=== PATIENT | female | born 1980 | race Caucasian/White ===

== ENCOUNTER 2022-04-13 15:00 | Outpatient (CLI) | payer MEDICAID, OTHER ==
--- NOTE | 2022-04-13 16:59 | XRAY Report ---
PROCEDURE: Chest 2 View X-Ray INDICATIONS: COUGH TECHNIQUE: 2 views of the chest were acquired. COMPARISON: None FINDINGS: Surgical changes and devices: None. Lungs and pleura: No pleural effusions or pneumothorax. Lungs are clear. Mediastinum: Mediastinal contours are normal. Heart size is normal. Bones and chest wall: No suspicious bony abnormalities. Soft tissues appear unremarkable. IMPRESSION: No acute cardiopulmonary abnormality Reviewed by: Timothy Hutchins on 04/13/2022 4:58 PM PST Approved by: Timothy Hutchins on 04/13/2022 4:58 PM [facility] Station ID: [id number]
== END 2022-04-13 23:59 | disposition home or self-care (01) ==
LOC: DI.N 15:00
PROVIDERS: ATTEND Registered Nurse
DX: R05.9 Cough, unspecified (principal)

== ENCOUNTER 2023-03-21 17:21 | Emergency (ER) | payer BC, MEDICAID, OTHER ==
[2023-03-21] MEDS ORDERED: SODIUM CHLORIDE 0.9% 1,000 ML IV STA (18:17)
[2023-03-21 18:20] LABS: BASOPHILS # (AUTO) 0.1 10^3/uL (0.0-0.1); BASOPHILS % (AUTO) 0.5 %; EOSINOPHILS # (AUTO) 0.2 10^3/uL (0.0-0.7); EOSINOPHILS % (AUTO) 2.4 %; HCT - HEMATOCRIT 42.2 % (37.0-47.0); HGB - HEMOGLOBIN 13.7 g/dL (12.0-16.0); LYMPHOCYTES # (AUTO) 3.9 10^3/uL (1.5-3.5); LYMPHOCYTES % (AUTO) 40.5 %; MEAN CORPUSCULAR HEMOGLOBIN 27.5 pg (27.0-31.0); MEAN CORPUSCULAR HGB CONC 32.5 g/dL (32.0-36.0); MEAN CORPUSCULAR VOLUME 84.6 fL (81.0-99.0); MEAN PLATELET VOLUME 9.5 fL (7.9-10.8); MONOCYTES # (AUTO) 0.6 10^3/uL (0.0-1.0); NEUTROPHILS # (AUTO) 4.8 10^3/uL (1.5-6.6); NEUTROPHILS % (AUTO) 50.3 %; PLT - PLATELET COUNT 301 10^3/uL (130-450); RED BLOOD COUNT 4.99 10^6/uL (4.20-5.40); RED CELL DISTRIBUTION WIDTH 13.8 % (12.0-15.0); WHITE BLOOD COUNT 9.6 x10^3/uL (4.8-10.8)
--- NOTE | 2023-03-21 18:20 | ED Physician Documentation ---
History of Present Illness - Stated complaint Stated Complaint: HIGH BLOOD SUGAR - Chief complaint Chief Complaint: General - Additonal information Additional information: 42-year-old female presents emergency department for evaluation of blood sugars. Reports that she was diagnosed as a type II diabetic within the last year. Initial A1c was 14 but on recheck several months ago it was down to 10. Patient takes NovoLog 2 units on average with meals. She takes Lantus 20 units at night. She is also on Ozempic each week. Typically reports her blood sugars are in the 150s. She will typically go to a coffee stand and have a sugar-free drink. The usual glass polisher that serves her was not present today and patient believes that she may have gotten a full sugar drink. At home she has felt lightheaded and weak. Some nausea no vomiting. Denies abdominal pain. She checked her blood sugars and it was 570. She took 6 units of NovoLog prior to arrival and on presentation to the ER her sugar was 482. Patient denies fevers, cough, dysuria or any recent illness Review of Systems Constitutional: denies: Fever, Chills Ears: reports: Reviewed and negative Throat: reports: Reviewed and negative Cardiac: denies: Chest pain / pressure, Palpitations Respiratory: denies: Dyspnea, Cough GI: reports: Nausea. denies: Abdominal Pain, Vomiting : reports: Reviewed and negative Skin: reports: Reviewed and negative PD PAST MEDICAL HISTORY - Past Medical History Past Medical History: Yes Cardiovascular: None Respiratory: None Neuro: None Endocrine/Autoimmune: Type 2 diabetes GI: None VERIFICATION MANAGER: None : None HEENT: None Psych: None Musculoskeletal: None Derm: None - Past Surgical History Past Surgical History: No - Present Medications Home Medications: Ambulatory Orders Medication Instructions Recorded Confirmed Atorvastatin Calcium 40 mg PO BID 03/21/23 DULoxetine [Cymbalta] 30 mg PO DAILY 03/21/23 QUEtiapine [SEROquel] 50 mg PO DAILY 03/21/23 - Allergies Allergies/Adverse Reactions: Allergies Allergy/AdvReac Type Severity Reaction Status Date / Time Penicillins Allergy Anaphylaxis Verified 03/21/23 17:24 Sulfa (Sulfonamide Allergy Emesis Verified 03/21/23 17:24 Antibiotics) - Social History Does the pt smoke?: No Smoking Status: Never smoker Does the pt drink ETOH?: No Does the pt have substance abuse?: No - Immunizations Immunizations are current?: Yes - POLST Patient has POLST: No PD ED PE NORMAL - General General: Alert and oriented X 3, No acute distress, Well developed/nourished - HEENT HEENT: Atraumatic - Neck Neck: Supple, no meningeal sign - Cardiac Cardiac: RRR, No murmur - Respiratory Respiratory: No respiratory distress, Clear bilaterally - Abdomen Abdomen: Normal bowel sounds, Soft, Non tender - Back Back: No CVA TTP - Derm Derm: Normal color, Warm and dry, No rash - Extremities Extremities: No deformity - Neuro Neuro: Alert and oriented X 3 Eye Opening: Spontaneous Motor: Obeys Commands Verbal: Oriented GCS Score: 15 Results - Vitals Vitals: Vital Signs - 24 hr 03/21/23 03/21/23 03/21/23 17:24 18:24 18:38 Temperature 36.8 C Heart Rate 88 86 Respiratory 18 17 18 Rate Blood Pressure 200/100 H 130/81 H O2 Saturation 98 97 Oxygen O2 Source Room air - Labs Labs: Laboratory Tests 03/21/23 03/21/23 03/21/23 17:27 18:12 18:12 WBC 9.6 RBC 4.99 Hgb 13.7 Hct 42.2 MCV 84.6 MCH 27.5 MCHC 32.5 RDW 13.8 Plt Count 301 MPV 9.5 Neut # (Auto) 4.8 Lymph # (Auto) 3.9 H [place] # (Auto) 0.6 Eos # (Auto) 0.2 Baso # (Auto) 0.1 Absolute Nucleated RBC 0.00 Nucleated RBC % 0.0 VBG pH VBG pCO2 VBG pO2 VBG HCO3 VBG Total CO2 VBG O2 Saturation VBG Base Excess Sodium 130 L Potassium 4.2 Chloride 97 L Carbon Dioxide 26 Anion Gap 7.0 BUN 20 Creatinine 0.8 Estimated GFR (MDRD) 79 L Glucose 421 H POC Whole Bld Glucose 482 H Calcium 9.9 Total Bilirubin 0.3 AST 12 ALT 20 Alkaline Phosphatase 83 Total Protein 7.2 Albumin 4.3 Globulin 2.9 Albumin/Globulin Ratio 1.5 Lipase 44 Urine Color Urine Clarity Urine pH Ur Specific [place] Urine Protein Urine Glucose (UA) Urine Ketones Urine Occult Blood Urine Nitrite Urine Bilirubin Urine Urobilinogen Ur Leukocyte Esterase Ur Microscopic Review Urine Culture Comments Urine HCG, Qual Serum Ketones NEGATIVE 03/21/23 03/21/23 03/21/23 18:12 18:35 19:43 WBC RBC Hgb Hct MCV MCH MCHC RDW Plt Count MPV Neut # (Auto) Lymph # (Auto) [place] # (Auto) Eos # (Auto) Baso # (Auto) Absolute Nucleated RBC Nucleated RBC % VBG pH 7.452 H VBG pCO2 35.5 L VBG pO2 89.0 H VBG HCO3 24.2 VBG Total CO2 25.3 VBG O2 Saturation 97.2 H VBG Base Excess 0.7 Sodium Potassium Chloride Carbon Dioxide Anion Gap BUN Creatinine Estimated GFR (MDRD) Glucose POC Whole Bld Glucose 286 H Calcium Total Bilirubin AST ALT Alkaline Phosphatase Total Protein Albumin Globulin Albumin/Globulin Ratio Lipase Urine Color YELLOW Urine Clarity CLEAR Urine pH 6.0 Ur Specific [place] 1.020 Urine Protein NEGATIVE Urine Glucose (UA) >=1000 H Urine Ketones TRACE Urine Occult Blood NEGATIVE Urine Nitrite NEGATIVE Urine Bilirubin NEGATIVE Urine Urobilinogen 0.2 (NORMAL) Ur Leukocyte Esterase NEGATIVE Ur Microscopic Review NOT INDICATED Urine Culture Comments NOT INDICATED Urine HCG, Qual NEGATIVE Serum Ketones PD Medical Decision Making - ED course Complexity details: reviewed results, re-evaluated patient, d/w patient ED course: 42-year-old female presents emergency department for evaluation of hyperglycemia in the setting of insulin-dependent type 2 diabetes which was diagnosed within the last year. She reports that she is on Lantus 20 units at night and takes NovoLog about 2 units with meals. Typically her sugars are in the 150s. She usually gets a sugar-free caffeinated drink each day at a local coffee stand but the [facility] was not told to give her sugar-free drink. After consuming that she began to have headaches, malaise and dizziness. Checked her sugars and found they were 570 at home. She did take 6 units of NovoLog and when she arrived here she was down to 428. Here in the ER CBC, electrolytes and ketones were obtained. She has no acidosis no gap and no ketones thus she is not in DKA. She was markedly hyperglycemic with a blood glucose in the 420s and some mild hyponatremia secondary to the hyperglycemia. She was given a liter of fluids and 5 units of regular insulin and on recheck her blood sugar was in the 260s. Patient was feeling markedly improved. I suspect the hyperglycemia to be secondary to the ingestion of sugar. Urine showed no evidence of infection. She is discharged home in stable condition to follow closely with her PCP. Departure - Departure Disposition: 01 Home, Self Care Clinical Impression: Hyperglycemia Condition: Stable Record reviewed to determine appropriate education?: Yes Comments: Yuliana you are seen today in the emergency department for elevated blood sugars. It sounds like when you got your coffee drink today you were given a sugar drink as opposed to a sugar-free 1 that you typically received. Though you did have elevated blood sugars they have responded nicely to fluids and insulins. You are not in DKA or diabetes ketoacidosis. This time it is okay for you to be discharged home. Please continue to follow your sugars closely over the next 24 to 48 hours but I expect that they will resume back to their baseline levels of the 150s over the next 2 days. Return to the ER if you are having any new or worsening symptoms. Forms: PCP List
[2023-03-21 18:22] LABS: VBG PCO2 35.5 mmHg (41-51); VBG PH 7.452 (7.31-7.41)
[2023-03-21 18:23] LABS: VBG BASE EXCESS 0.7 mmol/L (-2 - +2); VBG HCO3 24.2 mmol/L (23-28); VBG OXYGEN SATURATION 97.2 % (60-80); VBG TOTAL CO2 25.3 mmol/L (24-29)
[2023-03-21 18:32] LABS: ALBUMIN 4.3 g/dL (3.2-5.5); ALBUMIN/GLOBULIN RATIO 1.5 (1.0-2.2); ALKALINE PHOSPHATASE 83 IU/L (42-121); ALT ALANINE AMINOTRANSFERASE 20 IU/L (10-60); AST ASPARTATE AMINOTRANSFERASE 12 IU/L (10-42); BILIRUBIN,TOTAL 0.3 mg/dL (0.2-1.0); BUN - BLOOD UREA NITROGEN 20 mg/dL (6-20); CALCIUM 9.9 mg/dL (8.5-10.3); CARBON DIOXIDE - CO2 26 mmol/L (21-32); CHLORIDE 97 mmol/L (101-111); CREATININE 0.8 mg/dL (0.6-1.3); GFR - MDRD 79 (>89); GLUCOSE 421 mg/dL (74-104); LIPASE 44 U/L (11-82); POTASSIUM 4.2 mmol/L (3.5-4.5); SODIUM 130 mmol/L (135-145); TOTAL PROTEIN 7.2 g/dL (6.4-8.9)
[2023-03-21] MEDS ORDERED: INSULIN REGULAR HUMAN 300 UNIT/3 ML VIAL IVP STA (18:47)
[2023-03-21 19:00] LABS: BILIRUBIN,URINE NEGATIVE (NEGATIVE); GLUCOSE, URINE (UA) >=1000 mg/dL (NEGATIVE); KETONES,URINE (UA) TRACE mg/dL (NEGATIVE); LEUKOCYTE ESTERASE, URINE NEGATIVE (NEGATIVE); NITRITE,URINE NEGATIVE (NEGATIVE); OCCULT BLOOD,URINE NEGATIVE (NEGATIVE); PROTEIN,URINE NEGATIVE (NEGATIVE); UROBILINOGEN,URINE 0.2 (NORMAL) E.U./dL (NORMAL)
[2023-03-21 19:04] LABS: CLARITY,URINE CLEAR (CLEAR); HCG UR QUAL NEGATIVE
[2023-03-21 19:10] LABS: KETONES, SERUM (ACETEST) NEGATIVE (NEGATIVE)
[2023-03-21 20:46] VITALS: BP 138/71; O2SAT 98
== END 2023-03-21 20:39 | disposition home or self-care (01) ==
LOC: ED 17:21
DX: E11.65 Type 2 diabetes mellitus with hyperglycemia (principal); Z79.4 Long term (current) use of insulin; Z79.899 Other long term (current) drug therapy
CPT/HCPCS: 36415; 80053; 81003; 81025; 82009; 82803; 83690; 85025; 96360; 96361; 99283; J1815; 81001; 87086

== ENCOUNTER 2023-03-22 21:21 | Emergency (ER) | payer BC ==
[2023-03-22] MEDS ORDERED: SODIUM CHLORIDE 0.9% 1,000 ML IV STA (21:55)
[2023-03-22 22:07] LABS: BASOPHILS % (AUTO) 0.4 %; EOSINOPHILS # (AUTO) 0.3 10^3/uL (0.0-0.7); EOSINOPHILS % (AUTO) 2.8 %; HGB - HEMOGLOBIN 13.7 g/dL (12.0-16.0); LYMPHOCYTES # (AUTO) 4.6 10^3/uL (1.5-3.5); LYMPHOCYTES % (AUTO) 47.9 %; MEAN CORPUSCULAR HEMOGLOBIN 27.7 pg (27.0-31.0); MEAN CORPUSCULAR HGB CONC 32.6 g/dL (32.0-36.0); MEAN CORPUSCULAR VOLUME 84.8 fL (81.0-99.0); MEAN PLATELET VOLUME 9.1 fL (7.9-10.8); MONOCYTES # (AUTO) 0.5 10^3/uL (0.0-1.0); NEUTROPHILS # (AUTO) 4.2 10^3/uL (1.5-6.6); NEUTROPHILS % (AUTO) 43.6 %; PLT - PLATELET COUNT 315 10^3/uL (130-450); RED BLOOD COUNT 4.95 10^6/uL (4.20-5.40); RED CELL DISTRIBUTION WIDTH 13.8 % (12.0-15.0); WHITE BLOOD COUNT 9.7 x10^3/uL (4.8-10.8)
[2023-03-22] MEDS ORDERED: ONDANSETRON 4 MG/2 ML VIAL IVP STA (22:09)
[2023-03-22 22:14] LABS: KETONES, SERUM (ACETEST) NEGATIVE (NEGATIVE); VBG HCO3 28.6 mmol/L (23-28); VBG OXYGEN SATURATION 70.5 % (60-80); VBG PCO2 47.5 mmHg (41-51); VBG PH 7.398 (7.31-7.41); VBG PO2 35.3 mmHg (25-47); VBG TOTAL CO2 30.1 mmol/L (24-29)
[2023-03-22 22:23] VITALS: O2SAT 100
[2023-03-22 22:23] LABS: ALBUMIN 4.4 g/dL (3.2-5.5); ALBUMIN/GLOBULIN RATIO 1.5 (1.0-2.2); ALKALINE PHOSPHATASE 80 IU/L (42-121); ALT ALANINE AMINOTRANSFERASE 20 IU/L (10-60); AST ASPARTATE AMINOTRANSFERASE 14 IU/L (10-42); BILIRUBIN,TOTAL 0.3 mg/dL (0.2-1.0); BUN - BLOOD UREA NITROGEN 21 mg/dL (6-20); CALCIUM 10.1 mg/dL (8.5-10.3); CARBON DIOXIDE - CO2 27 mmol/L (21-32); CHLORIDE 96 mmol/L (101-111); CREATININE 0.8 mg/dL (0.6-1.3); GFR - MDRD 79 (>89); GLUCOSE 390 mg/dL (74-104); LIPASE 65 U/L (11-82); POTASSIUM 4.2 mmol/L (3.5-4.5); SODIUM 130 mmol/L (135-145); TOTAL PROTEIN 7.3 g/dL (6.4-8.9)
[2023-03-22 22:51] LABS: BILIRUBIN,URINE NEGATIVE (NEGATIVE); GLUCOSE, URINE (UA) >=1000 mg/dL (NEGATIVE); KETONES,URINE (UA) NEGATIVE (NEGATIVE); LEUKOCYTE ESTERASE, URINE NEGATIVE (NEGATIVE); NITRITE,URINE NEGATIVE (NEGATIVE); OCCULT BLOOD,URINE NEGATIVE (NEGATIVE); PROTEIN,URINE NEGATIVE (NEGATIVE); UROBILINOGEN,URINE 0.2 (NORMAL) E.U./dL (NORMAL)
[2023-03-22 22:53] LABS: CLARITY,URINE CLEAR (CLEAR); HCG UR QUAL NEGATIVE
[2023-03-22] MEDS ORDERED: ACETAMINOPHEN 325 MG TABLET PO STA (23:20)
[2023-03-22] MEDS ORDERED: INSULIN REGULAR HUMAN 300 UNIT/3 ML VIAL SUBQ STA (23:20)
--- NOTE | 2023-03-23 00:03 | ED Physician Documentation ---
History of Present Illness - Stated complaint Stated Complaint: HIGH BLOOD SUGAR - Chief complaint Chief Complaint: General - History obtained from History obtained from: Patient - Additonal information Additional information: 42-year-old woman with history of diabetes presents with hyperglycemia from home, headache while at work today, and nonbloody nonbilious nausea and vomiting. Patient denies diarrhea, abdominal pain, urinary symptoms or fever. Review of Systems Constitutional: denies: Fever, Chills Eyes: denies: Decreased vision Ears: denies: Ear pain Nose: denies: Rhinorrhea / runny nose, Congestion Throat: denies: Sore throat Cardiac: denies: Chest pain / pressure Respiratory: denies: Dyspnea GI: reports: Nausea, Vomiting. denies: Abdominal Pain, Diarrhea : denies: Dysuria Neurologic: reports: Headache. denies: Head injury PD PAST MEDICAL HISTORY - Past Medical History Cardiovascular: None Respiratory: None Neuro: None Endocrine/Autoimmune: Type 2 diabetes GI: None NETWORK MGR: None : None HEENT: None Psych: None Musculoskeletal: None Derm: None - Past Surgical History Past Surgical History: No - Present Medications Home Medications: Ambulatory Orders Medication Instructions Recorded Confirmed Atorvastatin Calcium 40 mg PO BID 03/21/23 DULoxetine [Cymbalta] 30 mg PO DAILY 03/21/23 QUEtiapine [SEROquel] 50 mg PO DAILY 03/21/23 Ondansetron Odt [Zofran Odt] 4 mg TL Q6H PRN #10 tablet 03/23/23 - Allergies Allergies/Adverse Reactions: Allergies Allergy/AdvReac Type Severity Reaction Status Date / Time Penicillins Allergy Anaphylaxis Verified 03/22/23 21:49 Sulfa (Sulfonamide Allergy Emesis Verified 03/22/23 21:49 Antibiotics) - Social History Does the pt smoke?: No Smoking Status: Never smoker Does the pt drink ETOH?: No Does the pt have substance abuse?: No - Immunizations Immunizations are current?: Yes - POLST Patient has POLST: No Results - Vitals Vitals: Vital Signs - 24 hr 03/22/23 03/22/23 21:42 22:18 Temperature 36.4 C L 37 C Heart Rate 78 83 Respiratory 18 20 Rate Blood Pressure 179/113 H 134/85 H O2 Saturation 98 100 Oxygen O2 Source Room air - Labs Labs: Laboratory Tests 03/22/23 03/22/23 03/22/23 22:01 22:01 22:01 WBC 9.7 RBC 4.95 Hgb 13.7 Hct 42.0 MCV 84.8 MCH 27.7 MCHC 32.6 RDW 13.8 Plt Count 315 MPV 9.1 Neut # (Auto) 4.2 Lymph # (Auto) 4.6 H [place] # (Auto) 0.5 Eos # (Auto) 0.3 Baso # (Auto) 0.0 Absolute Nucleated RBC 0.00 Nucleated RBC % 0.0 VBG pH 7.398 VBG pCO2 47.5 VBG pO2 35.3 VBG HCO3 28.6 H VBG Total CO2 30.1 H VBG O2 Saturation 70.5 VBG Base Excess 3.0 H Sodium 130 L Potassium 4.2 Chloride 96 L Carbon Dioxide 27 Anion Gap 7.0 BUN 21 H Creatinine 0.8 Estimated GFR (MDRD) 79 L Glucose 390 H Calcium 10.1 Total Bilirubin 0.3 AST 14 ALT 20 Alkaline Phosphatase 80 Total Protein 7.3 Albumin 4.4 Globulin 2.9 Albumin/Globulin Ratio 1.5 Lipase 65 Urine Color Urine Clarity Urine pH Ur Specific [place] Urine Protein Urine Glucose (UA) Urine Ketones Urine Occult Blood Urine Nitrite Urine Bilirubin Urine Urobilinogen Ur Leukocyte Esterase Ur Microscopic Review Urine Culture Comments Urine HCG, Qual Serum Ketones NEGATIVE 03/22/23 22:47 WBC RBC Hgb Hct MCV MCH MCHC RDW Plt Count MPV Neut # (Auto) Lymph # (Auto) [place] # (Auto) Eos # (Auto) Baso # (Auto) Absolute Nucleated RBC Nucleated RBC % VBG pH VBG pCO2 VBG pO2 VBG HCO3 VBG Total CO2 VBG O2 Saturation VBG Base Excess Sodium Potassium Chloride Carbon Dioxide Anion Gap BUN Creatinine Estimated GFR (MDRD) Glucose Calcium Total Bilirubin AST ALT Alkaline Phosphatase Total Protein Albumin Globulin Albumin/Globulin Ratio Lipase Urine Color YELLOW Urine Clarity CLEAR Urine pH 6.0 Ur Specific [place] 1.020 Urine Protein NEGATIVE Urine Glucose (UA) >=1000 H Urine Ketones NEGATIVE Urine Occult Blood NEGATIVE Urine Nitrite NEGATIVE Urine Bilirubin NEGATIVE Urine Urobilinogen 0.2 (NORMAL) Ur Leukocyte Esterase NEGATIVE Ur Microscopic Review NOT INDICATED Urine Culture Comments NOT INDICATED Urine HCG, Qual NEGATIVE Serum Ketones PD Medical Decision Making - ED course ED course: 42-year-old woman with history of diabetes presents with hyperglycemia without evidence of DKA on lab work. Also with nausea that resolved status post Zofran. Electronic prescription sent to [facility] in [place]. Patient has appointment with her doctor this week. Counseling provided and return precautions given. Departure - Departure Disposition: 01 Home, Self Care Clinical Impression: Hyperglycemia, Diabetes, Vomiting Condition: Stable Instructions: Hyperglycemia Comments: You were seen in the emergency department for Vomiting, headache and high blood sugar. Your lab work looked okay except for your high blood sugar. 5 units of insulin was injected with improvement in sugar. Electronic prescription for Zofran was sent to [facility] in [place]. Please follow-up with your primary care provider and return to the emergency department if you have any new or worsening symptoms or other concerns. Forms: PCP List, Activity restrictions
[2023-03-23 00:22] VITALS: BP 128/74
== END 2023-03-23 00:12 | disposition home or self-care (01) ==
LOC: ED 21:21
DX: E11.65 Type 2 diabetes mellitus with hyperglycemia (principal); R51.9 Headache, unspecified; R11.2 Nausea with vomiting, unspecified
CPT/HCPCS: 36415; 80053; 81003; 81025; 82009; 82803; 83690; 85025; 96374; 99283; A9270; J1815; 81001; 87086

== ENCOUNTER 2023-06-30 08:00 | Outpatient (CLI) | payer BC ==
[2023-06-30 12:56] LABS: SARS-CoV-2 -RESP PCR PANEL NOT DETECTED
[2023-06-30 12:57] LABS: INFLUENZA A H1 2009- RESP PCR DETECTED; INFLUENZA B - RESP PCR PANEL NOT DETECTED; RSV- RESP PCR PANEL NOT DETECTED
== END 2023-06-30 23:59 | disposition home or self-care (01) ==
LOC: LAB 08:00
PROVIDERS: ATTEND Registered Nurse
DX: R06.2 Wheezing (principal); R05.9 Cough, unspecified
CPT/HCPCS: 87637

== ENCOUNTER 2023-12-01 13:13 | Outpatient (CLI) | payer BC ==
--- NOTE | 2023-12-01 23:27 | XRAY Report ---
PROCEDURE: Shoulder 2+V LT INDICATIONS: PX IN LT SHOULDER TECHNIQUE: 3 views of the shoulder were acquired. COMPARISON: None. FINDINGS: Bones: No fractures or dislocations. Mild degenerative changes of the acromioclavicular joint. No s uspicious bony lesions. Visualized ribs appear intact. Soft tissues: No suspicious soft tissue calcifications. The visualized lungs are within normal limi ts. IMPRESSION: No acute bony abnormality. Mild left acromioclavicular osteoarthrosis. If there is continued clinical concern for pathology or occult fracture, consider follow-up imaging w ith repeat radiographs in 10-14 days and possible advanced imaging (CT, MRI, bone scan) if symptoms p ersist. Reviewed by: Hamzah Augustin MD on 12/01/2023 11:26 PM PDT Approved by: Hamzah Augustin MD on 12/01/2023 11:26 PM PDT Station ID: [id number]
--- NOTE | 2023-12-01 23:30 | XRAY Report ---
PROCEDURE: Elbow 3+V LT INDICATIONS: PX IN LT SHOULDER TECHNIQUE: 3 views of the elbow were acquired. COMPARISON: None. FINDINGS: Bones: No fractures or dislocations. No suspicious bony lesions. Soft tissues: No effusion. No suspicious soft tissue calcifications or masses. IMPRESSION: No acute bony abnormality or significant joint effusion. If there is continued clinical concern for pathology or occult fracture, consider follow-up imaging w ith repeat radiographs in 10-14 days and possible advanced imaging (CT, MRI, bone scan) if symptoms p ersist. Reviewed by: Hamzah Augustin MD on 12/01/2023 11:28 PM PDT Approved by: Hamzah Augustin MD on 12/01/2023 11:28 PM PDT Station ID: [id number]
--- NOTE | 2023-12-01 23:30 | XRAY Report ---
PROCEDURE: Wrist 3+V LT INDICATIONS: PX IN LT SHOULDER TECHNIQUE: 4 views of the wrist were acquired. COMPARISON: None. FINDINGS: Bones: No fractures or dislocations. No suspicious bony lesions. Soft tissues: No suspicious soft tissue calcifications or masses. IMPRESSION: No acute bony abnormality. If there is continued clinical concern for pathology or occult fracture, consider follow-up imaging w ith repeat radiographs in 10-14 days and possible advanced imaging (CT, MRI, bone scan) if symptoms p ersist. Reviewed by: Hamzah Augustin MD on 12/01/2023 11:29 PM PDT Approved by: Hamzah Augustin MD on 12/01/2023 11:29 PM PDT Station ID: [id number]
== END 2023-12-01 13:14 | disposition home or self-care (01) ==
LOC: DI 13:13
PROVIDERS: ATTEND Physician Assistant
DX: M19.012 Primary osteoarthritis, left shoulder (principal); M25.522 Pain in left elbow; M25.532 Pain in left wrist